=== PATIENT | male | born 1995 | race Caucasian/White ===

== ENCOUNTER → 2017-12-14 | Outpatient (CLI) | payer OTHER ==
[~2017-12-14] MED LIST: ANTIVERT25 MG PO; CLARITIN10 MG PO; HYDROCODON-ACE1 EAC8 PO; MOTION RELIEF25 MG PO; MULTI-VITAMIN1 EAC5 PO; NOHOMEMEDICATIONS; VENTOLIN HFA 1818 GM INH
== END ==
LOC: M.RAD 17:23
DX: M25.512 Pain in left shoulder (principal)

== ENCOUNTER → 2018-01-04 | Outpatient (CLI) | payer OTHER | LOC: M.MRI 15:34 | DX: M75.102 Unspecified rotator cuff tear or rupture of left shoulder, not specified as traumatic (principal) ==

== ENCOUNTER 2018-07-18 12:31 | Emergency (ER) | payer OTHER ==
[~2018-07-18] VITALS: Ht 182.9 cm; Wt 118.1 kg
[~2018-07-18 12:31] MED LIST changes: -ANTIVERT25 MG PO; -MOTION RELIEF25 MG PO; -VENTOLIN HFA 1818 GM INH
[2018-07-18] MEDS ORDERED: MOTION RELIEF25 MG PO (13:04)
[2018-07-18] MEDS ORDERED: ANTIVERT25 MG PO (15:09)
[2018-07-18] MEDS ORDERED: VENTOLIN HFA 1818 GM INH (15:09)
[2018-07-18 15:19] VITALS: BP 103/50
== END 2018-07-18 15:20 | disposition home or self-care (01) ==
LOC: M.ERS 12:31
DX: R42 Dizziness and giddiness (principal); R53.1 Weakness; H53.8 Other visual disturbances; Z88.0 Allergy status to penicillin